=== PATIENT | female | born 1990 | race Caucasian/White ===

== ENCOUNTER 2016-07-03 22:29 | Emergency (ER) | payer OTHER ==
[~2016-07-03] VITALS: Ht 157.5 cm; Wt 127.9 kg
[2016-07-03 22:31] VITALS: BP 133/77
== END 2016-07-04 00:01 | disposition home or self-care (01) ==
LOC: ED 22:29
DX: N39.0 Urinary tract infection, site not specified (principal)

== ENCOUNTER 2018-04-04 18:20 | Emergency (ER) | payer OTHER ==
[~2018-04-04] VITALS: Ht 162.6 cm; Wt 78.5 kg
[2018-04-04 18:28] VITALS: Ht 162.6 cm; Wt 78.5 kg
[2018-04-04 20:09] VITALS: BP 132/92
== END 2018-04-04 20:09 | disposition home or self-care (01) ==
LOC: ED 18:20
DX: J32.9 Chronic sinusitis, unspecified (principal); R07.89 Other chest pain; F17.210 Nicotine dependence, cigarettes, uncomplicated; Z98.890 Other specified postprocedural states
CPT/HCPCS: J1885; J7030; Q0092